=== PATIENT | male | born 1955 | race Two or more races ===

== ENCOUNTER 2024-04-27 16:07 | Inpatient (IN) | payer OTHER ==
[~2024-04-27] VITALS: Ht 185.4 cm; Wt 126.3 kg
[2024-04-27] MEDS: ACETAMINOPHEN 325 MG TAB PO ONE (17:00)
[2024-04-27] MEDS: IPRATROPIUM BROM 0.5 MG/2.5ML INH SOL NEB ONE (17:50)
[2024-04-27] MEDS: ALBUTEROL SULF 2.5 MG/0.5ML(0.5%) NEB SOLN NEB ONE (17:50)
[2024-04-27] MEDS: SODIUM CHLORIDE 0.9% 1,000 ML IV ONE (18:13)
[2024-04-27] MEDS: methylPREDNISolone SOD SUCC 125 MG/2 ML VL IV ONE (18:13)
--- NOTE | 2024-04-27 18:20 | ED.PDOC ---
SOB-HPI HPI Comments HPI: Poor Historian. 69-year-old male presents to emergency department for two day history of body aches, cough, shortness of breath, fever. Patient's O2 sat here in triage was 92% at room air. Onset of symptoms happened the same day he took his flu shot on Wednesday. Past Medcial History: Hypertension, thyroid disease Past Surgical History: Left hand amputation REVIEW OF SYSTEMS: CONSTITUTIONAL: Denies acute: diaphoresis, chills, HEAD: Denies acute: headache, photophobia Eyes: Denies acute: Double vision, vision loss, eye pain, eye discharge. EARS: Denies acute: tinnitus, hearing loss, ear discharge, ear pain, THROAT: Denies acute: swelling, difficulty swallowing , pain with swallowing, change in voice. NECK: Denies acute: neck pain, neck swelling, stiff neck. HEART: Denies acute : chest pain, palpitations, LUNGS: Denies acute: wheezing, hemoptysis ABDOMEN: Denies acute: abdominal pain, Nausea, Vomiting, diarrhea, melena , hematemesis, hematochezia SKIN: Denies acute: rash, redness, lesions, itchiness. EXTREMITIES: Denies acute: calf pain, numbness, tingling, weakness, denies pain in extremity. Denies acute: Low back pain. Neuro: Denies acute: focal neurological deficit, motor or sensory focal neurological deficit, tremors, seizure like activity, confusion, dizziness, change in mental status, loss of bowel or bladder function, cauda equina like symptoms. : Denies acute: dysuria, hematuria, flank pain, increase in urinary frequency. PSYCH: Denies acute: hallucination, suicidal ideation, homicidal ideation. PHYSICAL EXAM: General: no acute distress, awake and alert. Head: normocephalic, atraumatic. Neck: supple, trachea is midline, no swelling. Throat: Normal phonation. Eyes:, no erythema, no purulent discharge, no proptosis, no icterus. Heart: regular rate, regular rhythm, no significant murmur appreciated. Lungs: no apparent respiratory distress, Able to speak in full sentences. No wheezing, no rhonchi, no crackles. No stridors Clear to auscultation bilaterally. Abdomen: non tender to palpation, non distended, soft, no guarding, no rebound, + bowel sounds. Neuro: Awake, Alert, oriented to name, self, situation, follows commands GCS=15. Speech is normal. Skin: no petechia, no purpura, no cyanosis, non-pale, not jaundice. Lower extremities: --trace b/l - Pitting edema no deformity, no focal swelling, no calf TTP. Makes eye contact. moves all four extremities. Face: no apparent facial droop. Ambulating in the ED independently. Chief Complaint: Flu like Time Seen by MD: 16:12 Reviewed notes: Nurses Notes, Allergies Information Source: Patient Mode of Arrival: Ambulatory X-Ray, Labs, Meds, VS Vital Signs Date Time Temp Pulse Resp B/P (MAP) Pulse Ox O2 Delivery O2 Flow Rate FiO2 04/27/24 20:27 96 20 120/72 (88) 93 04/27/24 20:27 120/72 04/27/24 18:49 98.9 98.9 04/27/24 18:49 98.9 04/27/24 17:50 18 93 Room Air* 0 21 04/27/24 17:25 100 18 100 Room Air 04/27/24 17:25 100.4 100 18 141/62 (88) 93 100.4 04/27/24 17:09 19 93 Room Air* 0 21 04/27/24 17:05 102.1 97 19 148/70 (96) 93 04/27/24 17:00 102.1 Lab Test 04/27/24 21:08 04/27/24 19:52 04/27/24 19:37 04/27/24 17:22 Range/Units Troponin I High Sensitivity 170 *H 165 *H </=54 ng/L Triglycerides Level 135 < 150 mg/dL Cholesterol Level 125 < 200 mg/dL LDL Cholesterol 46 < 100 mg/dL HDL Cholesterol 56 40-59 mg/dL Thyroid Stimulating Hormone (TSH) 0.58 0.55-4.78 uIU/mL Blood Gas Specimen Type Arterial Blood Gas Sample Site Right radial Blood Gas Patient Temperature 37.0 Arterial Blood Date Drawn [id number] Arterial Blood pH 7.446 7.350-7.450 Arterial Blood Partial Pressure CO2 30.2 L 35.0-48.0 mmHg Arterial Blood Partial Pressure O2 67.7 L 83.0-108.0 mmHg Arterial Blood HCO3 20.3 L 21.0-28.0 mmol/L Arterial Blood Oxygen Saturation 93.9 L 94.0-98.0 % Arterial Blood Base Excess -2.5 L -2.0-3.0 mmol/L Arterial Blood Oxyhemoglobin 92.8 L 94.0-98.0 % Arterial Blood Carboxyhemoglobin 0.6 0.5-1.5 % Arterial Blood Methemoglobin 0.6 0.0-1.5 % Abraham Test Modified Blood Gas Total Hemoglobin 14.80 13.5-17.5 g/dL Blood Gas Modality Room air FiO2 % 21.0 White Blood Count 5.2 4.4-10.8 10^3/uL Red Blood Count 4.23 L 4.5-5.90 10^6/uL Hemoglobin 14.1 13.5-17.5 g/dL Hematocrit 41.6 41.0-53.0 % Mean Corpuscular Volume 98.2 80.0-100.0 fL Mean Corpuscular Hemoglobin 33.4 H 28.0-32.0 pg Mean Corpuscular Hemoglobin Concent 34.0 32.0-36.0 g/dL Red Cell Distribution Width 14.8 H 11.8-14.3 % Platelet Count 143 140-450 10^3/uL Mean Platelet Volume 8.2 6.9-10.8 fL Neutrophils (%) (Auto) 90.2 H 37.0-80.0 % Lymphocytes (%) (Auto) 6.2 L 10.0-50.0 % Monocytes (%) (Auto) 3.1 0.0-12.0 % Eosinophils (%) (Auto) 0.2 0.0-7.0 % Basophils (%) (Auto) 0.3 0.0-2.0 % Neutrophils # (Auto) 4.7 1.6-8.6 10 ^3/uL Lymphocytes # (Auto) 0.3 L 0.4-5.4 10 ^3/uL Monocytes # (Auto) 0.2 0-1.3 10 ^3/uL Eosinophils # (Auto) 0 0-0.8 10 ^3/uL Basophils # (Auto) 0 0-0.2 10 ^3/uL Nucleated Red Blood Cells 0.0 % D-Dimer, Quantitative 0.19 0.0-0.49 mg/L FEU Sodium Level 141 136-145 mmol/L Potassium Level 3.3 L 3.5-5.1 mmol/L Chloride Level 111 H 98-107 mmol/L Carbon Dioxide Level 20 20-31 mmol/L Anion Gap 10 5-15 Blood Urea Nitrogen 10 9-23 mg/dL Creatinine 0.91 0.700-1.30 mg/dL Glomerular Filtration Rate Calc 91 >90 mL/min BUN/Creatinine Ratio 11.0 10.0-20.0 Serum Glucose 187 H 74-106 mg/dL Hemoglobin A1c 5.6 <5.7 % A1C Lactic Acid Level 2.6 *H 0.4-2.0 mmol/L Calcium Level 8.6 L 8.7-10.4 mg/dL Magnesium Level 1.9 1.6-2.6 mg/dL Total Bilirubin 0.6 0.2-1.0 mg/dL Aspartate Amino Transferase (AST) 20 13-40 U/L Alanine Aminotransferase (ALT) 26 7-40 U/L Alkaline Phosphatase 93 46-116 U/L B-Type Natriuretic Peptide 257.90 0-100 pg/mL Total Protein 5.9 5.7-8.2 g/dL Albumin 3.9 3.2-4.8 g/dL Free Thyroxine (T4) Calculated 1.43 0.89-1.76 ng/dL Urine Color Yellow Yellow Urine Clarity Clear Clear Urine pH 5.5 5.0-9.0 Urine Specific [place] 1.029 1.001-1.035 Urine Protein Trace H Negative Urine Ketones Negative Negative Urine Blood 1+ H Negative /uL Urine Nitrite Negative Negative Urine Bilirubin Negative Negative Urine Urobilinogen Normal Negative mg/dL Urine Leukocyte Esterase Negative Negative /uL Urine RBC 1 0 - 3 /hpf Urine WBC 1 0 - 3 /hpf Urine Squamous Epithelial Cells Few <5 /hpf Urine Bacteria None seen None Seen /hpf Urine Mucus Few None Seen Urine Glucose Normal Normal mg/dL Urine Opiates Screen Neg NEGATIVE Urine Fentanyl Screen Neg NEGATIVE Urine Barbiturates Screen Neg NEGATIVE Urine Phencyclidine Screen Neg NEGATIVE Urine Amphetamines Screen Neg NEGATIVE Urine Benzodiazepines Screen Neg NEGATIVE Urine Cocaine Screen Neg NEGATIVE Urine Cannabinoids Screen Neg NEGATIVE Influenza Type A Antigen Positive Negative Influenza Type B Antigen Negative Negative SARS-CoV-2 Antigen (Rapid) Negative NEGATIVE Current Medications Medications (Trade) Dose Ordered Sig/Anshul Route Start Time Stop Time Status Last Admin Acetaminophen (Tylenol Tablet) 1,000 mg ONCE ONCE PO 04/27/24 17:00 04/27/24 17:01 DC 04/27/24 17:00 Albuterol (Ventolin Medneb) 2.5 mg ONCE ONCE NEB 04/27/24 17:15 04/27/24 17:16 DC 04/27/24 17:50 Ipratropium [place] (Atrovent Medneb) 1 mg ONCE ONCE NEB 04/27/24 17:15 04/27/24 17:16 DC 04/27/24 17:50 Methylprednisolone Sodium Succinate (Solu Medrol) 125 mg ONCE ONCE IV 04/27/24 17:15 04/27/24 17:16 DC 04/27/24 18:13 Sodium Chloride 1,000 ml @ 1,000 mls/hr Q1H ONCE IV 04/27/24 17:15 04/27/24 18:14 DC 04/27/24 18:13 Oseltamivir Phosphate (Tamiflu 75MG Capsule) 75 mg ONCE ONCE PO 04/27/24 19:30 04/27/24 19:59 DC 04/27/24 20:27 Furosemide (Lasix Injection) 40 mg ONCE ONCE IV 04/27/24 19:45 04/27/24 19:46 DC 04/27/24 20:27 Ceftriaxone Sodium 50 ml @ 100 mls/hr ONCE ONCE IV 04/27/24 19:45 04/27/24 20:14 DC 04/27/24 20:27 Aspirin 325 mg ONCE ONCE PO 04/27/24 20:45 04/27/24 21:07 DC 04/27/24 23:39 EXAMINATION: AP portable chest radiograph CLINICAL HISTORY: sob/cough/body aches COMPARISON: At the time of this review, no prior studies are available for comparison. FINDINGS: Patient is leaning to the left. Interstitial prominence and mild central vascular redistribution. Streaky opacities in the right lung base. No definite pleural effusion or pneumothorax. The cardiomediastinal silhouette appears within normal limits given technique. IMPRESSION: Right basilar opacities may reflect atelectasis/scarring or developing infiltrates. Pulmonary vascular congestion/interstitial edema. Departure 1 Departure Time of Disposition: 19:32 Impression: Primary Impression: Influenza A Additional Impressions: Dyspnea Pneumonia Elevated troponin Disposition: ADMITTED INPATIENT Admit to: Tele Condition: Guarded Discharged With: Self I personally scribed for BEATA DAMICO DO ([email or web address]) on 04/28/24 at 00:48. Electro nically submitted by Solitario Gan ([facility]). BEATA DAMICO DO Apr 27, 2024 18:20
[2024-04-27 18:41] LABS: Urine Bacteria None Seen /hpf (None Seen)
--- NOTE | 2024-04-27 18:45 | DVH ---
EXAMINATION: AP portable chest radiograph CLINICAL HISTORY: sob/cough/body aches COMPARISON: At the time of this review, no prior studies are available for comparison. FINDINGS: Patient is leaning to the left. Interstitial prominence and mild central vascular redistribution. Streaky opacities in the right aisha g base. No definite pleural effusion or pneumothorax. The cardiomediastinal silhouette appears within normal limits given technique. IMPRESSION: Right basilar opacities may reflect atelectasis/scarring or developing infiltrates. Pulmonary vascular congestion/interstitial edema.
[2024-04-27 19:01] LABS: COVID19 ANTIGEN SOFIA FIA NEGATIVE (NEGATIVE)
[2024-04-27 19:02] LABS: Rapid Influenza A Positive (Negative); Rapid Influenza B Negative (Negative)
[2024-04-27 19:06] LABS: Urine Blood 1+ /uL (Negative); Urine Clarity Clear (Clear); Urine Color Yellow (Yellow); Urine Mucus FEW (None Seen); Urine Protein, UAD TRACE (Negative); Urine Specific Gravity 1.029 (1.001-1.035); Urine Squamous Epithelial Cell FEW /hpf (<5); Urine Urobilinogen Normal (Negative); Urine WBC 1 /hpf (0 - 3); Urine pH 5.5 (5.0-9.0)
[2024-04-27 19:59] LABS: Base Excess -2.5 mmol/L (-2.0-3.0)
[2024-04-27 20:09] LABS: Basophils # (auto) 0 10 ^3/uL (0-0.2); Basophils % (auto) 0.3 % (0.0-2.0); Eosinophils # (auto) 0 10 ^3/uL (0-0.8); Eosinophils % (auto) 0.2 % (0.0-7.0); Hematocrit 41.6 % (41.0-53.0); Hemoglobin 14.1 g/dL (13.5-17.5); Lymphocytes # (auto) 0.3 10 ^3/uL (0.4-5.4); Lymphocytes % (auto) 6.2 % (10.0-50.0); Mean Corpuscular Hemoglobin 33.4 pg (28.0-32.0); Mean Corpuscular Volume 98.2 fL (80.0-100.0); Monocytes # (auto) 0.2 10 ^3/uL (0-1.3); Monocytes % (auto) 3.1 % (0.0-12.0); Neutrophils # (auto) 4.7 10 ^3/uL (1.6-8.6); Neutrophils % (auto) 90.2 % (37.0-80.0); Platelet Count (auto) 143 10^3/uL (140-450); Red Blood Cells 4.23 10^6/uL (4.5-5.90); Red Cell Distribution Width 14.8 % (11.8-14.3); White Blood Cell 5.2 10^3/uL (4.4-10.8)
[2024-04-27 20:23] LABS: Alanine Aminotransferase 26 U/L (7-40); Albumin 3.9 g/dL (3.2-4.8); Alkaline Phosphatase 93 U/L (46-116); Anion Gap 10 (5-15); Aspartate Aminotransferase 20 U/L (13-40); Bilirubin, Total 0.6 mg/dL (0.2-1.0); Blood Urea Nitrogen 10 mg/dL (9-23); Carbon Dioxide 20 mmol/L (20-31); Magnesium 1.9 mg/dL (1.6-2.6); Sodium 141 mmol/L (136-145); Total Protein 5.9 g/dL (5.7-8.2)
[2024-04-27 20:24] LABS: Calcium 8.6 mg/dL (8.7-10.4); Chloride 111 mmol/L (98-107); Glucose 187 mg/dL (74-106); Potassium 3.3 mmol/L (3.5-5.1)
[2024-04-27 20:25] LABS: Lactic Acid w/Reflex 2.6 mmol/L (0.4-2.0)
[2024-04-27] MEDS: OSELTAMIVIR 75 MG CAP PO ONE (20:27)
[2024-04-27] MEDS: FUROSEMIDE 40 MG/4 ML VIAL IV ONE (20:27)
[2024-04-27] MEDS: cefTRIAXone 1GM/50ML D5W 50 ML IV ONE (20:27)
[2024-04-27 23:12] LABS: Triglycerides 135 mg/dL (< 150)
[2024-04-27 23:13] LABS: LDL Cholesterol 46 mg/dL (< 100)
[2024-04-27 23:14] LABS: Cholesterol 125 mg/dL (< 200); HDL Cholesterol 56 mg/dL (40-59)
[2024-04-27 23:21] LABS: Opiate Scree,Urine Neg (NEGATIVE); Phencyclidine Screen, Urine Neg (NEGATIVE)
[2024-04-27 23:25] LABS: Amphetamine Screen, Urine Neg (NEGATIVE); Barbiturate Scree,Urine Neg (NEGATIVE); Benzodiazephine Screen, Urine Neg (NEGATIVE); Cannabinoid Screen, Urine Neg (NEGATIVE); Cocaine Screen, Urine Neg (NEGATIVE)
--- NOTE | 2024-04-27 23:29 | DVHHPRES ---
History of Present Illness Resident Creating Document: LUIS ALBERTO COHEN RESIDENT History of Present Illness This is a 69-year-old male with past medical history of hypertension, hypothyroidism, CHF, COPD, left hand amputation due to construction accident in 1994, who presented to the ED with acute shortness of breath associated with generalized body aches, fever and chills. The patient stated all symptoms started two days ago when he received the flu shot. The patient also mentions associated headache and fatigue. The patient denies chest pain, palpitations, abdominal pain or any other symptoms at this time. Upon admission, patient initially was saturating 92% on room air. Initial labs CBC was grossly unremarkable, CMP showed mild hypokalemia at 3.3 And lactic acid was 2.6. Troponins came back elevated at 165 and BNP was slightly elevated at 257. We ordered EKG. COVID-19 test came back negative but patient is positive for influenza A. Initial chest x-ray showed possible right lower lobe infiltrates. Dimer was negative at 0.19. We started the patient on [id number] mg b.i.d., we will perform sputum cultures, IV antibiotics setting of possible COPD exacerbation. We will admit the patient for further assessment and management. Past surgical history: Patient had cervical spine fusion, surgical lumbar laminectomy, carpal tunnel release in the right hand. Cardiovascular: CHF, HTN Pulmonary: COPD Endocrine: Hypothyroidism Past Surgical History Cervical spine fusion, lumbar laminectomy, carpal tunnel release. Family History: None Smoke: No ALCOHOL: occassional Drugs: None Lives: with Family Domestic Violence: Neg Review of Systems Constitutional: Yes: Fever, Chills, Malaise; No: Sweats, Weakness, Other Eyes: No: Pain, Vision change, Conjunctivae inflammation, Eyelid inflammation, Other, Redness ENT: No: Ear pain, Ear discharge, Nose pain, Nose discharge, Nose congestion, Mouth pain, Mouth swelling, Throat pain, Throat swelling, Other Respiratory: Cough, Shortness of breath, Sputum; No: Dry, SOB with excertion, Wheezing, Hemoptysis, Pleuritic Pain, Wheezing, Other Cardiovascular: No: Chest Pain, Palpitations, Orthopnea, Paroxysmal Noc. Dy spnea, Edema, Lt Headedness, Other Gastrointestinal: No: Nausea, Vomiting, Abdominal Pain, Diarrhea, Constipation, Melena, Hematochezia, Other Genitourinary: No Dysuria, No Frequency, No Incontinence, No Hematuria, No Retention, No Other Musculoskeletal: No: other, neck pain, shoulder pain, arm pain, back pain, hand pain, leg pain, foot pain Skin: No: Rash, Lesions, Jaundice, Bruising, Other Neurological: No: Weakness, Numbness, Incoordination, Change in speech, Confusion, Seizures, Other Allergies: Coded Allergies: NO KNOWN ALLERGIES (Unverified , 04/27/24) Exam Vital Signs Vital Signs Date Time Temp Pulse Resp B/P (MAP) Pulse Ox O2 Delivery O2 Flow Rate FiO2 04/27/24 20:27 96 20 120/72 (88) 93 04/27/24 18:49 98.9 98.9 04/27/24 17:50 Room Air* 0 21 General Appearance: Alert, Oriented X3, Cooperative, No acute distress HEENT: Atraumatic, PERRLA, EOMI, Mucous membr. moist/pink Respiratory: Clear to auscultation, Normal air movement Cardiovascular: Regular rate, Normal S1, Normal S2, No murmurs Abdominal: Normal bowel sounds, Soft, No tenderness, No hepatospenomegaly, No masses Extremities: No clubbing, No cyanosis, No edema, Normal pulses, No tenderness/swelling Skin: No rashes, No breakdown, No significant lesion Neuro: Normal gait, Normal speech, Strength at 5/5 X4 ext, Normal tone, Sensation intact, Cranial nerves 3-12 NL, Reflexes 2+ Psych/Mental Status: Mental status NL, Mood NL Labs/Xrays Labs Test 04/27/24 21:08 04/27/24 19:52 04/27/24 19:37 04/27/24 17:22 Range/Units Troponin I High Sensitivity 170 *H </=54 ng/L Blood Gas Specimen Type Arterial Blood Gas Sample Site Right radial Blood Gas Patient Temperature 37.0 Arterial Blood Date Drawn [id number] Arterial Blood pH 7.446 7.350-7.450 Arterial Blood Partial Pressure CO2 30.2 L 35.0-48.0 mmHg Arterial Blood Partial Pressure O2 67.7 L 83.0-108.0 mmHg Arterial Blood HCO3 20.3 L 21.0-28.0 mmol/L Arterial Blood Oxygen Saturation 93.9 L 94.0-98.0 % Arterial Blood Base Excess -2.5 L -2.0-3.0 mmol/L Arterial Blood Oxyhemoglobin 92.8 L 94.0-98.0 % Arterial Blood Carboxyhemoglobin 0.6 0.5-1.5 % Arterial Blood Methemoglobin 0.6 0.0-1.5 % Abraham Test Modified Blood Gas Total Hemoglobin 14.80 13.5-17.5 g/dL Blood Gas Modality Room air FiO2 % 21.0 White Blood Count 5.2 4.4-10.8 10^3/uL Red Blood Count 4.23 L 4.5-5.90 10^6/uL Hemoglobin 14.1 13.5-17.5 g/dL Hematocrit 41.6 41.0-53.0 % Mean Corpuscular Volume 98.2 80.0-100.0 fL Mean Corpuscular Hemoglobin 33.4 H 28.0-32.0 pg Mean Corpuscular Hemoglobin Concent 34.0 32.0-36.0 g/dL Red Cell Distribution Width 14.8 H 11.8-14.3 % Platelet Count 143 140-450 10^3/uL Mean Platelet Volume 8.2 6.9-10.8 fL Neutrophils (%) (Auto) 90.2 H 37.0-80.0 % Lymphocytes (%) (Auto) 6.2 L 10.0-50.0 % Monocytes (%) (Auto) 3.1 0.0-12.0 % Eosinophils (%) (Auto) 0.2 0.0-7.0 % Basophils (%) (Auto) 0.3 0.0-2.0 % Neutrophils # (Auto) 4.7 1.6-8.6 10 ^3/uL Lymphocytes # (Auto) 0.3 L 0.4-5.4 10 ^3/uL Monocytes # (Auto) 0.2 0-1.3 10 ^3/uL Eosinophils # (Auto) 0 0-0.8 10 ^3/uL Basophils # (Auto) 0 0-0.2 10 ^3/uL Nucleated Red Blood Cells 0.0 % D-Dimer, Quantitative 0.19 0.0-0.49 mg/L FEU Sodium Level 141 136-145 mmol/L Potassium Level 3.3 L 3.5-5.1 mmol/L Chloride Level 111 H 98-107 mmol/L Carbon Dioxide Level 20 20-31 mmol/L Anion Gap 10 5-15 Blood Urea Nitrogen 10 9-23 mg/dL Creatinine 0.91 0.700-1.30 mg/dL Glomerular Filtration Rate Calc 91 >90 mL/min BUN/Creatinine Ratio 11.0 10.0-20.0 Serum Glucose 187 H 74-106 mg/dL Lactic Acid Level 2.6 *H 0.4-2.0 mmol/L Calcium Level 8.6 L 8.7-10.4 mg/dL Magnesium Level 1.9 1.6-2.6 mg/dL Total Bilirubin 0.6 0.2-1.0 mg/dL Aspartate Amino Transferase (AST) 20 13-40 U/L Alanine Aminotransferase (ALT) 26 7-40 U/L Alkaline Phosphatase 93 46-116 U/L B-Type Natriuretic Peptide 257.90 0-100 pg/mL Total Protein 5.9 5.7-8.2 g/dL Albumin 3.9 3.2-4.8 g/dL Urine Color Yellow Yellow Urine Clarity Clear Clear Urine pH 5.5 5.0-9.0 Urine Specific [place] 1.029 1.001-1.035 Urine Protein Trace H Negative Urine Ketones Negative Negative Urine Blood 1+ H Negative /uL Urine Nitrite Negative Negative Urine Bilirubin Negative Negative Urine Urobilinogen Normal Negative mg/dL Urine Leukocyte Esterase Negative Negative /uL Urine RBC 1 0 - 3 /hpf Urine WBC 1 0 - 3 /hpf Urine Squamous Epithelial Cells Few <5 /hpf Urine Bacteria None seen None Seen /hpf Urine Mucus Few None Seen Urine Glucose Normal Normal mg/dL Influenza Type A Antigen Positive Negative Influenza Type B Antigen Negative Negative SARS-CoV-2 Antigen (Rapid) Negative NEGATIVE Assessment/Plan Assessment/Plan Assessment/plan Acute respiratory distress likely due to influenza A COPD exacerbation Lactic acidosis -initial chest x-ray showed possible right lower lobe infiltrations -COVID test came back negative but influenza a came back positive -currently saturating 93% on room air -start [id number] mg b.i.d. for five days -start IV azithromycin -start methylprednisolone 40 mg IV b.i.d. -start respiratory therapy with albuterol/ipratropium med nebs -acetaminophen 650 mg q.6 p.r.n. for fever -Order sputum culture Acute on chronic diastolic/systolic heart failure -BNP was elevated at 257, patient has Hx of CHF -order echocardiogram -monitor in's and out -cardiac diet -Ordered EKG -troponins were slightly elevated at 165 NSTEMI likely type II -troponins were positive at 165 -trend trops -Ordered EKG Mild Hypokalemia -potassium was 3.3, repleted -monitor electrolytes including magnesium Hypothyroidism -order TSH and free T4 -restart levothyroxine (patient not aware of his dosage) Primary hypertension -Will reconcil medications -currently normotensive Hx of chronic back pain -Resume home ibuprophen 800mg BID Goals of care discussed with the patient, full code Plan discussed with Dr. Smallwood Plan discussed with: Patient My Orders Orders - LUIS ALBERTO COHEN Procedure Category Date Status Time Admit ADMIT 04/27/24 Transmitted 22:49 Code Status CODE 04/27/24 Transmitted 22:49 Vital Signs [facility] 04/27/24 Verified 22:49 Review Orders With [facility] 04/27/24 Verified Adm. 22:49 Acetaminophen Tablet PHA 04/27/24 Verified (Tylenol Tablet) 23:00 Notify Of Changes [facility] 04/27/24 Verified From Base 22:49 Advance Directive [facility] 04/27/24 Verified 22:49 Echo 2d Mode Cardiac US 04/27/24 Verified DOP 22:49 Urinalysis LAB 04/27/24 Verified 22:49 Lipid Panel LAB 04/27/24 Verified 22:49 Patient Condition ORDERS 04/27/24 Verified 22:49 Allergies [facility] 04/27/24 Verified 22:49 Drug Screen LAB 04/27/24 Verified 22:49 Ambulate Every 4hours [facility] 04/27/24 Verified 22:49 Hemoglobin A1c LAB 04/27/24 Verified 22:49 Lovenox 40mg PHA 04/28/24 Verified 10:00 Date of Service: Apr 27, 2024 Billing Provider: BUCKY SMALLWOOD MD Common Visit Codes: [id number] INP/OBS CARE (HIGH) Secondary Visit Codes: [id number] CARE PLAN 30 MINUTES LUIS ALBERTO COHEN RESIDENT Apr 27, 2024 23:29 BUCKY SMALLWOOD MD Apr 28, 2024 20:45
[2024-04-27] MEDS: POTASSIUM CHL 20 Meq TABLET PO ONE (23:39)
[2024-04-27] MEDS: ASPirin 325 MG TAB PO ONE (23:39)
[2024-04-27 23:45] VITALS: PULSE 95; RESP 18; O2SAT 93
[2024-04-27] MEDS: IPRATROPIUM BROM 0.5 MG/2.5ML INH SOL NEB SCH (23:50)
[2024-04-27] MEDS: ALBUTEROL SULF 2.5 MG/0.5ML(0.5%) NEB SOLN NEB SCH (23:50)
[2024-04-27 23:51] VITALS: PULSE 96; RESP 18; O2SAT 98
[2024-04-27 23:52] VITALS: O2SAT 93
[2024-04-28] VITALS (16 sets, daily range): BP systolic 112–139; BP diastolic 58–84; PULSE 68–96; RESP 16–20; TEMP 97.5–98.8; O2SAT 88–100
[2024-04-28] MEDS: AZITHROMYCIN 500MG/ 250ML 250 ML IV ONE ×2 (00:24→15:47)
[2024-04-28] MEDS: ACETAMINOPHEN 325 MG TAB PO PRN (03:50)
[2024-04-28] MEDS: IBUPROFEN 800 MG TAB PO SCH (10:33)
[2024-04-28] MEDS: ENOXAPARIN SOD 40 MG/0.4 ML SYRINGE SC SCH (10:34)
[2024-04-28] MEDS: OSELTAMIVIR 75 MG CAP PO SCH (10:34)
[2024-04-28] MEDS: methylPREDNISolone SOD SUCC 40 MG/ML VL IV SCH (10:35)
--- NOTE | 2024-04-28 10:36 | DVHPNRES ---
Progress Note Date Seen: Apr 28, 2024 Resident Creating Document: KD TORRES RESIDENT Medical Necessity Reason Pt with a Central, PICC or Fol: No Subjective Review of Systems Patient is 69 years old male with past medical history of COPD, congestive heart failure, hypertension, hypothyroidism, BPH, 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 As per patient he has been having shortness of breath for last 2 days. Patient reported he could barely breathe at home. Patient also complained of having flu-like syndrome, generalized body ache and chills and fatigue. On further inquiry patient also endorsed orthopnea and PND. Patient also endorsed to episode of loose motion today, watery no blood. Chart review revealed patient had a fever of 102.1. Lab workup revealed mild hypokalemia with a potassium 3.3, lactic acid mildly elevated 2.6, mildly elevated troponin I 165> 170, BNP 257, patient also tested positive for influenza type a, tested negative for influenza type B and COVID-19, UDS negative. CXR revealed-Right basilar opacities may reflect atelectasis/scarring or developing infiltrates. Pulmonary vascular congestion/interstitial edema. PMH- COPD, congestive heart failure, hypertension, hypothyroidism, BPH, left hand amputation due to construction accident in 1994 PSH- Cervical spine fusion, lumbar laminectomy, carpal tunnel release. 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 Cardiovascular- deny acute palpitation Gastrointestinal- denies any rectal bleeding, nausea or vomiting Musculoskeletal-denies acute joint swelling or tenderness or redness Neurological- denies acute dysarthria, dysphagia, change in vision Psychiatry- denies depression or SI or HI Skin- denies acute rash or purpura Patient was seen today for clinical evaluation. Less than chart reviewed. Patient reported breathing is much better than before. Objective vital signs Vital Sign Date Time Temp Pulse Resp B/P (MAP) Pulse Ox O2 Delivery O2 Flow Rate FiO2 04/28/24 09:51 88 Room Air* 0 21 04/28/24 08:43 97.6 89 17 113/67 (82) 97.6 Total Intake and Output 04/27/24 04/27/24 04/28/24 15:00 23:00 07:00 Intake Total 1050 ml 300 ml Balance 1050 ml 300 ml medications Current Medications Medications Dose Ordered Sig/Anshul Route Start Time Stop Time Status Last Admin Dose Admin Acetaminophen 650 mg Q6HP PRN PO 04/27/24 23:00 04/28/24 03:50 650 MG Enoxaparin Sodium 40 mg DAILY SC 04/28/24 10:00 Oseltamivir Phosphate 75 mg BID PO 04/28/24 10:00 05/03/24 09:59 Methylprednisolone Sodium Succinate 40 mg BID IV 04/28/24 10:00 Albuterol 2.5 mg Q6HR NEB 04/28/24 00:00 04/28/24 06:07 2.5 MG Ipratropium [place] 0.5 mg Q6HR NEB 04/28/24 00:00 04/28/24 06:07 0.5 MG Ibuprofen 800 mg BID PO 04/28/24 10:00 Examination General examination- awake, alert, oriented, conversant HEENT- PEERLA, no acute nasal discharge Cardiovascular- S1-S2 audible, rate and rhythm regular, no murmur Respiratory-wheezing+ Gastrointestinal-nontender, bowel sound+. Nondistended Musculoskeletal-no acute joint swelling or tenderness or redness# Lower extremity- no leg edema Neurological- cranial nerves intact, no acute dysarthria or dysphagia Psychiatry- denies depression or SI or HI Skin- no acute rash or purpura laboratory and microbiology Laboratory Tests 04/27/24 19:37 Test 04/27/24 19:37 Range/Units Serum Glucose 187 H 74-106 mg/dL Problem List/Assessment/Plan Problem List/Assessment/Plan Acute hypoxic respiratory failure likely due to pneumonia Gram-positive versus Gram-negative Acute pneumonia Gram-positive versus Gram-negative Acute exertional COPD secondary to pneumonia Influenza type A Acute heart failure systolic versus diastolic Hypothyroidism Hypertensive heart disease Influenza type A- positive CXR revealed-Right basilar opacities may reflect atelectasis/scarring or developing infiltrates. Pulmonary vascular congestion/interstitial edema. Continue ceftriaxone 1 g IV daily Continue azithromycin 500 mg IV daily Continue methylprednisolone 40 mg IV b.i.d. Continue oseltamivir 75 mg p.o. b.i.d. Continue nebulization as prescribed Goals of care/advance care planning; FULL CODE; discussed with the patient >15 minutes PUD prophylaxis: Famotidine DVT prophylaxis: Lovenox Plan discussed with Dr. Crowder, nursing staff, patient Total time spent on patient evaluation, chart review, assessment and plan, discussion discussion >30 minutes Plan discussed with: Patient Plan discussed with: Patient, Other (RN) My Orders My Orders Orders - KD TORRES Procedure Category Date Status Time Complete Blood Count LAB 04/28/24 Logged 08:06 Basic Metabolic Panel LAB 04/28/24 Logged 08:06 Magnesium LAB 04/28/24 Logged 08:06 Date of Service: Apr 28, 2024 Billing Provider: RUDDY CROWDER MD Common Visit Codes: [id number] INP/OBS CARE(HIGH) Secondary Visit Codes: [id number] CARE PLAN 30 MINUTES KD TORRES Apr 28, 2024 10:36 RUDDY CROWDER MD Apr 28, 2024 15:13
[2024-04-28 13:55] LABS: Basophils # (auto) 0 10 ^3/uL (0-0.2); Basophils % (auto) 0.1 % (0.0-2.0); Eosinophils # (auto) 0 10 ^3/uL (0-0.8); Hematocrit 41.7 % (41.0-53.0); Lymphocytes # (auto) 0.4 10 ^3/uL (0.4-5.4); Lymphocytes % (auto) 6.1 % (10.0-50.0); Mean Corpuscular Hemoglobin 33.1 pg (28.0-32.0); Mean Corpuscular Hgb Conc. 33.7 g/dL (32.0-36.0); Mean Corpuscular Volume 98.3 fL (80.0-100.0); Monocytes # (auto) 0.5 10 ^3/uL (0-1.3); Monocytes % (auto) 8.6 % (0.0-12.0); Neutrophils % (auto) 85.2 % (37.0-80.0); Platelet Count (auto) 155 10^3/uL (140-450); Red Blood Cells 4.24 10^6/uL (4.5-5.90); Red Cell Distribution Width 14.5 % (11.8-14.3); White Blood Cell 5.9 10^3/uL (4.4-10.8)
[2024-04-28 13:58] LABS: Sodium 142 mmol/L (136-145)
[2024-04-28 13:59] LABS: Anion Gap 12 (5-15); Calcium 9.1 mg/dL (8.7-10.4)
[2024-04-28 14:04] LABS: BUN/Creatinine Ratio 16.7 (10.0-20.0); Blood Urea Nitrogen 14 mg/dL (9-23)
[2024-04-28 14:11] LABS: Carbon Dioxide 19 mmol/L (20-31); Chloride 111 mmol/L (98-107); Glucose 163 mg/dL (74-106); Potassium 3.4 mmol/L (3.5-5.1)
[2024-04-28] MEDS: FAMOTIDINE (10MG/ML) 2ML VL IV ONE (14:28)
[2024-04-28] MEDS: cefTRIAXone 1GM/50ML D5W 50 ML IV ONE (14:29)
[2024-04-28] MEDS ORDERED: POTA-228 PO (15:44)
[2024-04-28] MEDS ORDERED: TERA2CAP79 PO (15:44)
[2024-04-28] MEDS ORDERED: APIX5TAB PO (15:44)
[2024-04-28] MEDS ORDERED: SACU1TAB PO ×2 (15:44→19:43)
[2024-04-28] MEDS ORDERED: ATOR-507 PO (15:44)
[2024-04-28] MEDS ORDERED: FURO40TA4 PO (15:44)
[2024-04-28] MEDS ORDERED: ASPI-543 PO (19:43)
[2024-04-28] MEDS ORDERED: FINA5TAB4 PO (19:43)
[2024-04-28] MEDS ORDERED: PANT40TA2 PO (19:43)
[2024-04-28] MEDS ORDERED: ALLO300T2 PO (19:43)
[2024-04-28] MEDS ORDERED: LEVO175T4 PO (19:43)
[2024-04-28] MEDS ORDERED: METO25TA93 PO (19:43)
--- NOTE | 2024-04-28 21:24 | DVHSR ---
APPROVED REPORT EXAM: Two-dimensional and M-mode echocardiogram with Doppler and color Doppler. Blood Pressure: 117/71 mmHg INDICATION CHF RISK FACTORS Height: 73, Weight: 278 DIMENSIONS LVDd4.5 (3.8-5.7cm)LA (2D)4.2 (1.9-4.0cm)Aortic Root4.3 (2.0-3.7cm) LVDs3.3 (2.5-4.0cm)LA (MM) (1.9-4.0cm)Aortic Cusp Exc2.0 (1.5-2.0cm) EF (%) 54.0 (55-70%)Rt. Atrium (1.9-4.0cm)Asc. Aorta cm Mitral Valve MitralMitral Stenosis E wave1.14m/sMV Mean GR.mmHg A wave0.93m/sMV Peak GR.76mmHg E/A ratio1.22D MVAcm2 DECEL [id number] 1/2 [id number] IVRTmsDop MVA3.32cm2 Aortic Valve Aortic ValveAortic Stenosis V11.15m/Rosa Mean GR.3mmHg V21.25m/Rosa Peak GR.6mmHg LVOT Diameter2.6 (1.8-2.4cm)Doppler AVA4.88cm2 AI P 1/2 Uzbj608.82ms Other Information Technically limited study due to body habitus. Conclusion MILD LVH AND MILD LV DIASTOLIC DYSFUNCTION LV EJECTION FRACTION IS 65% NORMAL VALVES NO EFFUSION NORMAL RV FUNCTION
[2024-04-28] MEDS: FAMOTIDINE (10MG/ML) 2ML VL IV SCH (21:36)
[2024-04-29] VITALS (14 sets, daily range): BP systolic 105–125; BP diastolic 69–78; PULSE 77–101; RESP 16–20; TEMP 97.6–98.5; O2SAT 93–100
[2024-04-29 07:25] LABS: Potassium 4.1 mmol/L (3.5-5.1); Sodium 143 mmol/L (136-145)
[2024-04-29 07:26] LABS: Anion Gap 10 (5-15); Calcium 8.9 mg/dL (8.7-10.4); Carbon Dioxide 23 mmol/L (20-31)
[2024-04-29 07:31] LABS: Basophils # (auto) 0 10 ^3/uL (0-0.2); Basophils % (auto) 0.1 % (0.0-2.0); Eosinophils # (auto) 0 10 ^3/uL (0-0.8); Hemoglobin 13.4 g/dL (13.5-17.5); Lymphocytes # (auto) 0.5 10 ^3/uL (0.4-5.4); Lymphocytes % (auto) 6.9 % (10.0-50.0); Mean Corpuscular Hemoglobin 33.2 pg (28.0-32.0); Mean Corpuscular Hgb Conc. 34.4 g/dL (32.0-36.0); Mean Corpuscular Volume 96.5 fL (80.0-100.0); Monocytes # (auto) 0.4 10 ^3/uL (0-1.3); Monocytes % (auto) 6.6 % (0.0-12.0); Neutrophils # (auto) 5.7 10 ^3/uL (1.6-8.6); Neutrophils % (auto) 86.4 % (37.0-80.0); Platelet Count (auto) 152 10^3/uL (140-450); Red Blood Cells 4.04 10^6/uL (4.5-5.90); Red Cell Distribution Width 14.6 % (11.8-14.3); White Blood Cell 6.5 10^3/uL (4.4-10.8)
[2024-04-29 07:32] LABS: BUN/Creatinine Ratio 21.5 (10.0-20.0); Blood Urea Nitrogen 17 mg/dL (9-23); Magnesium 2.2 mg/dL (1.6-2.6)
[2024-04-29 07:40] LABS: Chloride 110 mmol/L (98-107); Glucose 167 mg/dL (74-106)
--- NOTE | 2024-04-29 09:18 | DVHDSRES ---
Discharge Summary Date of Admission Resident Creating Document: KD TORRES RESIDENT Apr 27, 2024 at 22:49 Date of Discharge: Apr 29, 2024 Admitting Diagnosis Acute hypoxic respiratory failure likely due to suspected pneumonia Labs/Diagnostic Data: Laboratory Results Test 04/29/24 06:24 04/27/24 21:08 04/27/24 19:52 04/27/24 19:37 White Blood Count 6.5 10^3/uL (4.4-10.8) Red Blood Count 4.04 10^6/uL (4.5-5.90) Hemoglobin 13.4 g/dL (13.5-17.5) Hematocrit 39.0 % (41.0-53.0) Mean Corpuscular Volume 96.5 fL (80.0-100.0) Mean Corpuscular Hemoglobin 33.2 pg (28.0-32.0) Mean Corpuscular Hemoglobin Concent 34.4 g/dL (32.0-36.0) Red Cell Distribution Width 14.6 % (11.8-14.3) Platelet Count 152 10^3/uL (140-450) Mean Platelet Volume 8.1 fL (6.9-10.8) Neutrophils (%) (Auto) 86.4 % (37.0-80.0) Lymphocytes (%) (Auto) 6.9 % (10.0-50.0) Monocytes (%) (Auto) 6.6 % (0.0-12.0) Eosinophils (%) (Auto) 0.0 % (0.0-7.0) Basophils (%) (Auto) 0.1 % (0.0-2.0) Neutrophils # (Auto) 5.7 10 ^3/uL (1.6-8.6) Lymphocytes # (Auto) 0.5 10 ^3/uL (0.4-5.4) Monocytes # (Auto) 0.4 10 ^3/uL (0-1.3) Eosinophils # (Auto) 0 10 ^3/uL (0-0.8) Basophils # (Auto) 0 10 ^3/uL (0-0.2) Nucleated Red Blood Cells 0.0 % Sodium Level 143 mmol/L (136-145) Potassium Level 4.1 mmol/L (3.5-5.1) Chloride Level 110 mmol/L (98-107) Carbon Dioxide Level 23 mmol/L (20-31) Anion Gap 10 (5-15) Blood Urea Nitrogen 17 mg/dL (9-23) Creatinine 0.79 mg/dL (0.700-1.30) Glomerular Filtration Rate Calc 96 mL/min (>90) BUN/Creatinine Ratio 21.5 (10.0-20.0) Serum Glucose 167 mg/dL (74-106) Calcium Level 8.9 mg/dL (8.7-10.4) Magnesium Level 2.2 mg/dL (1.6-2.6) Troponin I High Sensitivity 170 ng/L (</=54) Triglycerides Level 135 mg/dL (< 150) Cholesterol Level 125 mg/dL (< 200) LDL Cholesterol 46 mg/dL (< 100) HDL Cholesterol 56 mg/dL (40-59) Thyroid Stimulating Hormone (TSH) 0.58 uIU/mL (0.55-4.78) Blood Gas Specimen Type Arterial Blood Gas Sample Site Right radial Blood Gas Patient Temperature 37.0 Arterial Blood Date Drawn Arterial Blood pH 7.446 (7.350-7.450) Arterial Blood Partial Pressure CO2 30.2 mmHg (35.0-48.0) Arterial Blood Partial Pressure O2 67.7 mmHg (83.0-108.0) Arterial Blood HCO3 20.3 mmol/L (21.0-28.0) Arterial Blood Oxygen Saturation 93.9 % (94.0-98.0) Arterial Blood Base Excess -2.5 mmol/L (-2.0-3.0) Arterial Blood Oxyhemoglobin 92.8 % (94.0-98.0) Arterial Blood Carboxyhemoglobin 0.6 % (0.5-1.5) Arterial Blood Methemoglobin 0.6 % (0.0-1.5) Abraham Test Modified Blood Gas Total Hemoglobin 14.80 g/dL (13.5-17.5) Blood Gas Modality Room air FiO2 % 21.0 D-Dimer, Quantitative 0.19 mg/L FEU (0.0-0.49) Hemoglobin A1c 5.6 % A1C (<5.7) Lactic Acid Level 2.6 mmol/L (0.4-2.0) Total Bilirubin 0.6 mg/dL (0.2-1.0) Aspartate Amino Transferase (AST) 20 U/L (13-40) Alanine Aminotransferase (ALT) 26 U/L (7-40) Alkaline Phosphatase 93 U/L (46-116) B-Type Natriuretic Peptide 257.90 pg/mL (0-100) Total Protein 5.9 g/dL (5.7-8.2) Albumin 3.9 g/dL (3.2-4.8) Free Thyroxine (T4) Calculated 1.43 ng/dL (0.89-1.76) Test 04/27/24 17:22 Urine Color Yellow (Yellow) Urine Clarity Clear (Clear) Urine pH 5.5 (5.0-9.0) Urine Specific [place] 1.029 (1.001-1.035) Urine Protein Trace (Negative) Urine Ketones Negative (Negative) Urine Blood 1+ /uL (Negative) Urine Nitrite Negative (Negative) Urine Bilirubin Negative (Negative) Urine Urobilinogen Normal mg/dL (Negative) Urine Leukocyte Esterase Negative /uL (Negative) Urine RBC 1 /hpf (0 - 3) Urine WBC 1 /hpf (0 - 3) Urine Squamous Epithelial Cells Few /hpf (<5) Urine Bacteria None seen /hpf (None Seen) Urine Mucus Few (None Seen) Urine Glucose Normal mg/dL (Normal) Urine Opiates Screen Neg (NEGATIVE) Urine Fentanyl Screen Neg (NEGATIVE) Urine Barbiturates Screen Neg (NEGATIVE) Urine Phencyclidine Screen Neg (NEGATIVE) Urine Amphetamines Screen Neg (NEGATIVE) Urine Benzodiazepines Screen Neg (NEGATIVE) Urine Cocaine Screen Neg (NEGATIVE) Urine Cannabinoids Screen Neg (NEGATIVE) Influenza Type A Antigen Positive (Negative) Influenza Type B Antigen Negative (Negative) SARS-CoV-2 Antigen (Rapid) Negative (NEGATIVE) Other Laboratory Tests 04/29/24 06:24 Brief Hx & Hospital Course: Patient is 69 years old male with past medical history of COPD, congestive heart failure, hypertension, hypothyroidism, BPH, 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 As per patient he has been having shortness of breath for last 2 days. Patient reported he could barely breathe at home. Patient also complained of having flu-like syndrome, generalized body ache and chills and fatigue. On further inquiry patient also endorsed orthopnea and PND. Patient also endorsed to episode of loose motion today, watery no blood. Chart review revealed patient had a fever of 102.1. Lab workup revealed mild hypokalemia with a potassium 3.3, lactic acid mildly elevated 2.6, mildly elevated troponin I 165> 170, BNP 257, patient also tested positive for influenza type a, tested negative for influenza type B and COVID-19, UDS negative. CXR revealed-Right basilar opacities may reflect atelectasis/scarring or developing infiltrates. Pulmonary vascular congestion/interstitial edema. During hospital course patient's symptoms improved clinically with conservative treatment. Patient was found to have influenza type a and treated accordingly. Patient breathing well in room air. Patient reports feeling much better today. Patient is adamant about going home. Patient is being discharged with the azithromycin 250 mg p.o. b.i.d. for 3 days, prednisolone 40 mg p.o. daily for 5 days, Tamiflu 75 mg p.o. b.i.d. for 4 days. Patient was advised to follow up with the primary care physician in 1 week. Patient's meds were sent to the pharmacy electronically. Patient was hemodynamically stable on discharge. General examination- awake, alert, oriented, conversant HEENT- PEERLA, no acute nasal discharge Cardiovascular- S1-S2 audible, rate and rhythm regular, no murmur Respiratory-wheezing Gastrointestinal-nontender, bowel sound+. Nondistended Musculoskeletal-no acute joint swelling or tenderness or redness# Lower extremity- no leg edema Neurological- cranial nerves intact, no acute dysarthria or dysphagia Psychiatry- denies depression or SI or HI Skin- no acute rash or purpura Operations or Procedures DIAGNOSTIC IMAGING Diagnostic Imaging Report : [id number] Signed PATIENT: CAITLIN PERRY ACCT: [id number] UNIT: [id number] : 1955 LOC: ER ROOM / BED: / AGE / SEX: 69 / M ADM STATUS: REG ER SERVICE 1712 ORDERING PHYSICIAN: BEATA DAMICO DO PROCEDURE(s): CXRP - CHEST PORTABLE REASON: sob/cough/body aches ORDER NUMBER(s): [id number], ACCESSION NUMBER(s): [id number] EXAMINATION: AP portable chest radiograph CLINICAL HISTORY: sob/cough/body aches COMPARISON: At the time of this review, no prior studies are available for comparison. FINDINGS: Patient is leaning to the left. Interstitial prominence and mild central vascular redistribution. Streaky opacities in the right lung base. No definite pleural effusion or pneumothorax. The cardiomediastinal silhouette appears within normal limits given technique. IMPRESSION: Right basilar opacities may reflect atelectasis/scarring or developing infiltrates. Pulmonary vascular congestion/interstitial edema. ATED BY: KRISTOFER COOPER MD DICTATED DATE/TIME: 04/27/241842 SIGNED BY: KRISTOFER COOPER MD SIGNED DATE/TIME: 04/27/241842 CC: [place] [id number] Ph: [phone] DIAGNOSTIC IMAGING Diagnostic Imaging Report : [id number] Signed PATIENT: CAITLIN PERRY ACCT: [id number] UNIT: [id number] : 1955 LOC: CENTRAL ROOM / BED: Formerly named [facility] / A AGE / SEX: 69 / M ADM STATUS: ADM IN SERVICE 48 ORDERING PHYSICIAN: LUIS ALBERTO COHEN PROCEDURE(s): ECIDC - ECHO 2D MODE CARDIAC DOP REASON: CHF ORDER NUMBER(s): [id number], ACCESSION NUMBER(s): [id number] APPROVED REPORT EXAM: Two-dimensional and M-mode echocardiogram with Doppler and color Doppler. Blood Pressure: 117/71 mmHg INDICATION CHF RISK FACTORS Height: 73, Weight: 278 DIMENSIONS LVDd 4.5 (3.8-5.7cm) LA (2D) 4.2 (1.9-4.0cm) Aortic Root 4.3 (2.0- 3.7cm) LVDs 3.3 (2.5-4.0cm) LA (MM) (1.9-4.0cm) Aortic Cusp Exc 2.0 (1.5- 2.0cm) EF (%) 54.0 (55-70%) Rt. Atrium (1.9-4.0cm) Asc. Aorta cm Mitral Valve Mitral Mitral Stenosis E wave 1.14m/s MV Mean GR. mmHg A wave 0.93m/s MV Peak GR. 76mmHg E/A ratio 1.2 2D MVA cm2 DECEL Time 214ms PRESS 1/2 Time 66ms IVRT ms Dop MVA 3.32cm2 Aortic Valve Aortic Valve Aortic Stenosis V1 1.15m/s AO Mean GR. 3mmHg V2 1.25m/s AO Peak GR. 6mmHg LVOT Diameter 2.6 (1.8-2.4cm) Doppler SHRUTI 4.88cm2 AI P 1/2 Time 243.82ms Other Information Technically limited study due to body habitus. Conclusion MILD LVH AND MILD LV DIASTOLIC DYSFUNCTION LV EJECTION FRACTION IS 65% NORMAL VALVES NO EFFUSION NORMAL RV FUNCTION SIGNED BY: SREEKANTH COOPER MD SIGNED DATE/TIME: 04/28/242123 CC: Condition at Discharge: Stable Final Diagnosis/Problems List Acute hypoxic respiratory failure likely due to pneumonia Gram-positive versus Gram-negative Acute pneumonia Gram-positive versus Gram-negative Acute exertional COPD secondary to pneumonia NSTEMI Type Demand Led ischemia Suspected Diastolic HFpEF, LVEF 65% Influenza type A Acute heart failure systolic versus diastolic Hypothyroidism Hypertensive heart disease Discharge Disposition: Home Discharge Instruct/Medications Diet: Cardiac 2g Na,low cholest Activity: Light activity Medications: Axythro,ycin 250 mg qd for 3 days Tamiflu 75 mg p.o. b.i.d. for 4 days Prednisolone 40 mg p.o. daily for 5 days Please resume home medications Discharge Statement: "Patient was advised to return to the ER or call 911 if any headaches, dizziness, shortness of breath, chest pain, abdominal pain, bleeding, fevers, or worsening of medical condition. Patient was counseled about treatment plan, medications, possible side effects, patientverbalized understanding. All questions were answered to the best of my ability. This discharge took greater then 30 minutes in planning, reviewing documentation, counseling the patient, and discussing with other team members." ASSESSMENT ASSESSMENT Assessment Acute hypoxic respiratory failure likely due to pneumonia Gram-positive versus Gram-negative Acute pneumonia Gram-positive versus Gram-negative Acute exertional COPD secondary to pneumonia Influenza type A Acute heart failure systolic versus diastolic Hypothyroidism Hypertensive heart disease Date of Service: Apr 29, 2024 Billing Provider: YULIYA BARROW MD Common Visit Codes: 84079-AJC/OBS DISCH DAY >30min KD TORRES Apr 29, 2024 09:18 YULIYA BARROW MD May 01, 2024 21:48
[2024-04-29] MEDS: cefTRIAXone 1GM/50ML D5W 50 ML IV SCH (09:25)
[2024-04-29] MEDS ORDERED: AZIT500T66 PO (11:05)
[2024-04-29] MEDS ORDERED: TAMIFLU PO (11:44)
[2024-04-29] MEDS: AZITHROMYCIN 500MG/ 250ML 250 ML IV SCH (12:42)
[2024-04-29] MEDS ORDERED: AZIT-185 PO (14:46)
[2024-04-29] MEDS ORDERED: PRED20TA2 PO (15:13)
== END 2024-04-29 15:50 | disposition home or self-care (01) | DRG 280 ==
LOC: ER 16:07 → CENTRAL 22:25 → OVERFLOW 22:49 → CENTRAL 04-28 03:06
PROVIDERS: ADMIT Internal Medicine Geriatric Medicine; ATTEND Internal Medicine Geriatric Medicine
DX: I11.0 Hypertensive heart disease with heart failure (principal); I50.43 Acute on chronic combined systolic (congestive) and diastolic (congestive) heart failure; I21.A1 Myocardial infarction type 2; J10.08 Influenza due to other identified influenza virus with other specified pneumonia; J15.69 Pneumonia due to other Gram-negative bacteria; J96.01 Acute respiratory failure with hypoxia; J15.9 Unspecified bacterial pneumonia; E87.20 Acidosis, unspecified; J44.1 Chronic obstructive pulmonary disease with (acute) exacerbation; J44.0 Chronic obstructive pulmonary disease with (acute) lower respiratory infection; Z20.822 Contact with and (suspected) exposure to COVID-19; E78.5 Hyperlipidemia, unspecified; E03.9 Hypothyroidism, unspecified; E87.6 Hypokalemia; G89.29 Other chronic pain; N40.0 Benign prostatic hyperplasia without lower urinary tract symptoms; Z79.899 Other long term (current) drug therapy
CPT/HCPCS: 36415; 36600; 71045; 80048; 80053; 80061; 80307; 81001; 82805; 83036; 83605; 83735; 83880; 84439; 84443; 84484; 85025; 85379; 87426; 87804; 93306; 94640; G0378; J3490

== ENCOUNTER → 2024-10-27 | Outpatient (CLI) | payer OTHER ==
[~2024-10-27] MED LIST: ALLO300T2 PO; APIX5TAB PO; ASPI-543 PO; ATOR-507 PO; AZIT-185 PO; FINA5TAB4 PO; FURO40TA4 PO; LEVO175T4 PO; METO25TA93 PO; PANT40TA2 PO; POTA-228 PO; PRED20TA2 PO; SACU1TAB PO; TAMIFLU PO; TERA2CAP79 PO
[2024-10-27 11:50] LABS: Hematocrit 42.7 % (41.0-53.0); Hemoglobin 14.6 g/dL (13.5-17.5); Mean Corpuscular Hemoglobin 32.8 pg (28.0-32.0); Mean Corpuscular Volume 96.1 fL (80.0-100.0); Nucleated Red Blood Cells % 0.2 %
[2024-10-27 12:01] LABS: Urine Protein, UAD 1+ (Negative)
[2024-10-27 12:09] LABS: INR 1.11 (0.9-1.15); Partial Thromboplastin Time 28.5 SEC (24.5-34.5); Prothrombin Time 11.6 sec (9.3-11.8)
[2024-10-27 12:24] LABS: Alanine Aminotransferase 14 U/L (7-40); Albumin 4.0 g/dL (3.2-4.8); Alkaline Phosphatase 100 U/L (46-116); Anion Gap 10 (5-15); BUN/Creatinine Ratio 27.4 (10.0-20.0); Blood Urea Nitrogen 20 mg/dL (9-23); Calcium 9.8 mg/dL (8.7-10.4); Carbon Dioxide 24 mmol/L (20-31); Glucose 97 mg/dL (74-106); Potassium 3.6 mmol/L (3.5-5.1); Sodium 145 mmol/L (136-145); Total Protein 5.8 g/dL (5.7-8.2)
[2024-10-27 12:25] LABS: Bilirubin, Total 0.9 mg/dL (0.2-1.0)
[2024-10-27 12:26] LABS: Chloride 111 mmol/L (98-107)
== END | disposition home or self-care (01) ==
LOC: EDUNIT# 11:28 → LAB 11:28 → EDSTATUS 11-13 10:00
PROVIDERS: ATTEND Surgery
DX: Z01.818 Encounter for other preprocedural examination (principal); D17.79 Benign lipomatous neoplasm of other sites; I10 Essential (primary) hypertension; I25.2 Old myocardial infarction; E66.9 Obesity, unspecified; E78.5 Hyperlipidemia, unspecified; J44.9 Chronic obstructive pulmonary disease, unspecified; E03.9 Hypothyroidism, unspecified; Z86.16 Personal history of COVID-19; Z87.442 Personal history of urinary calculi; Z79.82 Long term (current) use of aspirin; Z79.890 Hormone replacement therapy; Z79.899 Other long term (current) drug therapy
CPT/HCPCS: 36415; 80053; 81001; 85025; 85610; 85730

== ENCOUNTER → 2024-11-30 | Day surgery (SDC) | payer OTHER ==
[2024-11-08 10:14] LABS: Hematocrit 41.4 % (41.0-53.0); Hemoglobin 14.1 g/dL (13.5-17.5); Mean Corpuscular Hemoglobin 32.8 pg (28.0-32.0); Mean Corpuscular Volume 96.0 fL (80.0-100.0); Nucleated Red Blood Cells % 0.1 %
[2024-11-08 10:25] LABS: INR 1.15 (0.9-1.15); Partial Thromboplastin Time 30.8 SEC (24.5-34.5); Prothrombin Time 12.0 sec (9.3-11.8)
[2024-11-08 10:27] LABS: Urine Protein, UAD TRACE (Negative)
[2024-11-08 10:37] LABS: Alanine Aminotransferase 14 U/L (7-40); Alkaline Phosphatase 97 U/L (46-116); Anion Gap 11 (5-15); BUN/Creatinine Ratio 22.7 (10.0-20.0); Bilirubin, Total 0.6 mg/dL (0.2-1.0); Blood Urea Nitrogen 17 mg/dL (9-23); Calcium 9.1 mg/dL (8.7-10.4); Carbon Dioxide 26 mmol/L (20-31); Chloride 107 mmol/L (98-107); Glucose 93 mg/dL (74-106); Sodium 144 mmol/L (136-145)
[2024-11-08 10:40] LABS: Potassium 3.5 mmol/L (3.5-5.1); Total Protein 5.7 g/dL (5.7-8.2)
[2024-11-08 11:00] LABS: Albumin 4.0 g/dL (3.2-4.8)
[2024-11-27 12:16] LABS: Hematocrit 41.8 % (41.0-53.0); Hemoglobin 14.1 g/dL (13.5-17.5); Mean Corpuscular Hemoglobin 32.3 pg (28.0-32.0); Mean Corpuscular Volume 96.3 fL (80.0-100.0); Nucleated Red Blood Cells % 0.1 %
[2024-11-27 12:36] LABS: INR 1.09 (0.9-1.15); Partial Thromboplastin Time 31.2 SEC (24.5-34.5); Prothrombin Time 11.5 sec (9.3-11.8)
[2024-11-27 12:41] LABS: Alanine Aminotransferase 12 U/L (7-40); Albumin 4.2 g/dL (3.2-4.8); Alkaline Phosphatase 102 U/L (46-116); Anion Gap 11 (5-15); BUN/Creatinine Ratio 19.5 (10.0-20.0); Blood Urea Nitrogen 15 mg/dL (9-23); Calcium 8.8 mg/dL (8.7-10.4); Carbon Dioxide 25 mmol/L (20-31); Glucose 101 mg/dL (74-106); Potassium 3.8 mmol/L (3.5-5.1); Total Protein 6.0 g/dL (5.7-8.2)
[2024-11-27 12:42] LABS: Bilirubin, Total 0.8 mg/dL (0.2-1.0)
[2024-11-27 12:43] LABS: Chloride 110 mmol/L (98-107); Sodium 146 mmol/L (136-145)
[2024-11-27 13:09] LABS: Urine Protein, UAD TRACE (Negative)
[~2024-11-30] VITALS: Ht 185.4 cm; Wt 127.0 kg
[~2024-11-30] MED LIST changes: +ACE3T PO; +BACITRACIN TOP OINT 1 UD PKG TOP ONE; +FLUMAZENIL 0.1 MG/ML INJ 10ML MDV IV PRN; +GLYCOPYRROLATE 0.2 MG/ML 1ML VIAL ONE; +HYDROmorphone HCL 2 MG/ML VL/or syr IV PRN; +KETAMINE 50mg/ML 1ml syringe ONE; +KETOROLAC TROMETH 30 MG/ML 1ML VIAL ONE; +LIDOCAINE 1% INJ PF 5ML AMP ONE; +NALOXONE HCL 0.4 MG/ML VIAL IV PRN; +ONDANSETRON HCL 4 MG/2 ML VIAL IV PRN; +ONDANSETRON HCL 4 MG/2 ML VIAL ONE; +PROPOFOL 10 MG/ML 20 ML IV ONE; +ceFAZolin 1GM VL ONE; +ceFAZolin 2 GM/D5W50ml 50 ML IV ONE; +fentaNYL CITRATE 100 MCG/2 ML VL IV PRN; +hydrALAZINE HCL 20 MG/ML VL IV PRN
[2024-11-30] MEDS: LIDOCAINE W/ EPINEPHRINE 1% 20ML VIAL ONE (08:11)
[2024-11-30] MEDS: BUPIVACAINE HCL 0.25% P/F 10 ML VIAL ONE (08:11)
[2024-11-30 08:43] VITALS: PULSE 81; RESP 18; TEMP 98.4; O2SAT 95
--- NOTE | 2024-11-30 08:58 | DVHOP2 ---
Operative Report - 2 Report Details Date: 11/30/24 Preop Diagnosis: left gluteal mass Postop Diagnosis: left gluteal mass Surgeon: Dr. Monster Perry Anesthesiologist: ZEV Meyer Anesthesia: Mac Consent: The patient was informed of the risks and benefits of the procedure. These include but are not limited to complications of anesthesia, postoperative infection, incomplete relief of symptoms, recurrence of symptoms, damage to bloo d vessels, nerves and tendons, deep venous thrombosis, pulmonary embolism and possible need for repeat surgery in the future. Indications for Surgery: left lower back upper gluteal mass Name of Procedure Performed excision of left gluteal mass Procedure Details Procedure Details: Under the supervision of Dr. Lamar and after patient identified mass the patient was taken to the OR. After adequate anesthesia the patient was placed in a right lateral position. The area was than prepped and draped. Prior to incision the area was infiltrated with 1:1 0.25% Marcaine and 1%lidocaine. A horizontal incision was made and fatty tissues was expelled and sent to pathology. The wound was than irrigated with normal saline. A 10 sinhala Jorge Alberto was placed and secured with nylon suture. Skin closure was accomplished with P rolene sutures. Sponge needle and blade counts were correct at the termination of procedure. Patient was transferred to recovery with out incident. Condition Good Disposition Home PAOLA PERRY NP Nov 30, 2024 08:58
[2024-11-30 10:00] VITALS: BP 117/68; PULSE 73; RESP 16; O2SAT 96
== END | disposition home or self-care (01) ==
LOC: SUR 11-13 09:22
PROVIDERS: ATTEND Surgery
DX: D17.1 Benign lipomatous neoplasm of skin and subcutaneous tissue of trunk (principal); R22.2 Localized swelling, mass and lump, trunk; E66.01 Morbid (severe) obesity due to excess calories; I25.2 Old myocardial infarction; J44.9 Chronic obstructive pulmonary disease, unspecified; I11.0 Hypertensive heart disease with heart failure; I50.9 Heart failure, unspecified
CPT/HCPCS: 21931; 36415; 80053; 81001; 85025; 85610; 85730; 88305; J0690; J1100; J1885; J2405; J2704; J3490